=== PATIENT | female | born 1955 | race Caucasian/White ===

== ENCOUNTER 2016-09-20 20:05 | Inpatient (IN) | payer OTHER ==
[2016-09-20] MEDS ORDERED: Ondansetron INJ* 2 MG/ML VIAL IV ONE (20:25)
[2016-09-20] MEDS ORDERED: NS 0.9% 1000 ML* 1,000 ML IV ONE (20:25)
[2016-09-20] MEDS ORDERED: Morphine INJ* 4 MG/ML 1 ML CARPUJECT IV ONE (20:25)
[2016-09-20] MEDS ORDERED: Ondansetron INJ* 2 MG/ML VIAL ONE (20:27)
[2016-09-20] MEDS ORDERED: Morphine INJ* 4 MG/ML 1 ML CARPUJECT ONE (20:27)
[2016-09-20 20:35] LABS: Hematocrit 40 % (35-47); Hemoglobin 12.8 g/dl (12.0-16.0); Mean Corpuscular HGB Conc 32 g/dl (31-36); Mean Corpuscular Hemoglobin 27 pg (27-31); Mean Corpuscular Volume 84 fL (80-97); Mean Platelet Volume 8 um3 (7.4-10.4); Red Blood Count 4.75 10^6/ul (4.0-5.4); Red Cell Distribution Width 16 % (10.5-15); White Blood Count 13.7 10^3/ul (3.5-10.8)
[2016-09-20] MEDS ORDERED: Metoclopramide IV* 5 MG/ML 2 ML VIAL IV ONE (20:43)
[2016-09-20] MEDS ORDERED: Metoclopramide IV* 5 MG/ML 2 ML VIAL ONE (20:43)
[2016-09-20 20:46] LABS: ALT 12 U/L (7-52); AST 13 U/L (13-39); Albumin 3.9 g/dL (3.2-5.2); Alkaline Phosphatase 59 U/L (34-104); Anion Gap 9 mmol/L (2-11); BUN/Creatinine Ratio 16.8 (8-20); Blood Urea Nitrogen 17 mg/dL (6-24); C Reactive Protein 219.85 mg/L (< 5.00); CO2 Carbon Dioxide 26 mmol/L (22-32); Calcium 9.4 mg/dL (8.6-10.3); Chloride 97 mmol/L (101-111); EGFR African American 71.7 (>60); EGFR Non-African American 55.7 (>60); Globulin 3.5 g/dL (2-4); Glucose 150 mg/dL (70-100); Lipase < 10 U/L (11.0-82.0); Magnesium 1.9 mg/dL (1.9-2.7); Potassium 3.8 mmol/L (3.5-5.0); Sodium 132 mmol/L (133-145); Total Protein 7.4 g/dL (6.4-8.9)
[2016-09-20] MEDS ORDERED: Iodixanol* (CONTRAST) 320 MG/ML 100 ML SDV IV ONE (21:01)
--- NOTE | 2016-09-20 22:09 | ED ---
Jorge Selby Erika, scribed for Wolf Jeffries MD on 09/20/16 at 2013 . Abdominal Pain/Female - HPI Summary HPI Summary: Patient is a 60-year-old female presenting to the ED with a CC of upper abdominal pain. Patient reports that pain initially was mild on 09/18/2016, improved yesterday, and then significantly worsened today. Pain is described as a tightness, and is aggravated by palpation. Pt cannot find a comfortable position. She denies similar pain in the past. Associated symptoms include nausea, but patient denies fever and vomiting. Patient has a Hx kidney cancer metastasized to the lungs, which she is currently being treated for with chemotherapy. Pt states she has not changed her regimen in 2 years. Pt states she has not been hospitalized for 2 years. Patient is followed by Dr. Ingram ( oncology) at [facility], who advised her to come to the ED today. Pt used to experience gas pains from the chemotherapy, which have been controlled with omeprazole. - History of Current Complaint Chief Complaint: EDAbdPain Stated Complaint: ABD PAIN/CANCER PT Time Seen by Provider: 09/20/16 20:12 Hx Obtained From: Patient Onset/Duration: Gradual Onset, Lasting Days, Worse Since - Today Timing: Hours Severity Initially: Mild Severity Currently: Moderate Pain Intensity: 9 Pain Scale Used: 0-10 Numeric Location: Discrete At: RUQ, Discrete At: LUQ, Epigastric Character: Other: - Tightness Aggravating Factor(s): Movement, Other: - Palpation Alleviating Factor(s): Nothing Associated Signs and Symptoms: Positive: Nausea. Negative: Fever, Vomiting Allergies/Adverse Reactions: Allergies Allergy/AdvReac Type Severity Reaction Status Date / Time Sunitinib [From Sutent] Allergy Nausea Verified 09/20/16 20:11 Home Medications: Home Medications Inlyta 09/20/16 [History] Levothyroxine TAB* [Synthroid TAB*] 50 mcg PO DAILY 09/20/16 [History Confirmed 09/20/16] Omeprazole CAP* [Prilosec CAP* 20 MG] 20 mg PO DAILY 09/20/16 [History Confirmed 09/20/16] PMH/Surg Hx/FS Hx/Imm Hx Respiratory History: Reports: Other Respiratory Problems/Disorders - KIDNEY CA, METASTASIZED TO LUNGS. History: Reports: Other Problems/Disorders - Kidney cancer Infectious Disease History: No Infectious Disease History: Denies: Traveled Outside the [place] in Last 30 Days - Family History Known Family History: Positive: Cardiac Disease, Other - Pancreatic CA - Social History Occupation: Employed Full-time Lives: With Family Alcohol Use: Occasionally Hx Substance Use: No Substance Use Type: Reports: None Hx Tobacco Use: No Smoking Status (MU): Never Smoked Tobacco Review of Systems Negative: Fever Positive: Abdominal Pain, Nausea. Negative: Vomiting All Other Systems Reviewed And Are Negative: Yes Physical Exam Triage Information Reviewed: Yes Vital Signs On Initial Exam: Initial Vitals Temp Pulse Resp BP Pulse Ox 99.1 F 81 18 114/57 100 09/20/16 20:07 09/20/16 20:07 09/20/16 20:07 09/20/16 20:07 09/20/16 20:07 Vital Signs Reviewed: Yes Appearance: Positive: Pain Distress - moderate, Thin Skin: Positive: Warm Head/Face: Positive: Normal Head/Face Inspection Eyes: Positive: WINNIE ENT: Positive: Hearing grossly normal Neck: Positive: Supple Respiratory/Lung Sounds: Positive: Clear to Auscultation, Breath Sounds Present Cardiovascular: Positive: Normal Abdomen Description: Positive: Other: - mild/mod upper abd tenderness Bowel Sounds: Positive: Present Musculoskeletal: Positive: Strength/ROM Intact Neurological: Positive: Alert, Oriented to Person Place, Time Psychiatric: Positive: Affect/Mood Appropriate Diagnostics - Vital Signs Vital Signs Temp Pulse Resp BP Pulse Ox 09/20/16 20:07 99.1 F 81 18 114/57 100 - Laboratory Lab Results: Lab Results 09/20/16 09/20/16 09/20/16 Range/Units 20:24 20:24 20:24 WBC 13.7 H (3.5-10.8) 10^3/ul RBC 4.75 (4.0-5.4) 10^6/ul Hgb 12.8 (12.0-16.0) g/dl Hct 40 (35-47) % MCV 84 (80-97) fL MCH 27 (27-31) pg MCHC 32 (31-36) g/dl RDW 16 H (10.5-15) % Plt Count 192 (150-450) 10^3/ul MPV 8 (7.4-10.4) um3 Neut % (Auto) 87.2 H (38-83) % Lymph % (Auto) 6.6 L (25-47) % [place] % (Auto) 5.7 (1-9) % Eos % (Auto) 0.2 (0-6) % Baso % (Auto) 0.3 (0-2) % Absolute Neuts (auto) 11.9 H (1.5-7.7) 10^3/ul Absolute Lymphs (auto) 0.9 L (1.0-4.8) 10^3/ul Absolute Monos (auto) 0.8 (0-0.8) 10^3/ul Absolute Eos (auto) 0 (0-0.6) 10^3/ul Absolute Basos (auto) 0 (0-0.2) 10^3/ul Absolute Nucleated RBC 0 10^3/ul Nucleated RBC % 0 Sodium 132 L (133-145) mmol/L Potassium 3.8 (3.5-5.0) mmol/L Chloride 97 L (101-111) mmol/L Carbon Dioxide 26 (22-32) mmol/L Anion Gap 9 (2-11) mmol/L BUN 17 (6-24) mg/dL Creatinine 1.01 H (0.51-0.95) mg/dL Est GFR ( Amer) 71.7 (>60) Est GFR (Non-Af Amer) 55.7 (>60) BUN/Creatinine Ratio 16.8 (8-20) Glucose 150 H (70-100) mg/dL Lactic Acid 1.3 (0.5-2.0) mmol/L Calcium 9.4 (8.6-10.3) mg/dL Magnesium 1.9 (1.9-2.7) mg/dL Total Bilirubin 1.10 H (0.2-1.0) mg/dL AST 13 (13-39) U/L ALT 12 (7-52) U/L Alkaline Phosphatase 59 (34-104) U/L C-Reactive Protein 219.85 H (< 5.00) mg/L Total Protein 7.4 (6.4-8.9) g/dL Albumin 3.9 (3.2-5.2) g/dL Globulin 3.5 (2-4) g/dL Albumin/Globulin Ratio 1.1 (1-3) Lipase < 10 L (11.0-82.0) U/L Result Diagrams: 09/20/16 20:24 09/20/16 20:24 Lab Statement: Any lab studies that have been ordered have been reviewed, and results considered in the medical decision making process. - CT CT A/P W/ CT Interpretation Completed By: Radiologist - IMPRESSION: 1. CT findings are most compatible with cholecystitis and gallbladder wall thickening. Further characterization can be made with ultrasound of the right upper quadrant. 2. There are 2 subcentimeter hypodensities in the right lobe of the liver that are too small to characterize further on this CT examination. Further imaging can be acquired during a right upper quadrant ultrasound. 3. Pulmonary nodule in the right lower lobe could represent renal cell carcinoma metastatic foci according to the patient's oncologic history. 4. Additional chronic, degenerative and iatrogenic findings described in body the report. - Ultrasound No standard instances Ultrasound Interpretation Completed By: Radiologist - IMAGING PROPERTY SUPERVISOR - Ultrasound Abd, RUQ - High suspicion for cholecystitis with minimal intrahepatic biliary duct dilation Re-Evaluation - Re-Evaluation First Eval Re-Evaluation Time: 22:31 Change: Improved Comment: Updated with CT results and need for an ultrasound. Pt is feeling somewhat improved Second Eval Re-Evaluation Time: 23:47 Comment: Discussed US results and need for admission and surgical consult Abdominal Pain Fem Course/Dx - Course Course Of Treatment: A 60 y/o F presents to the ED with a CC of upper abdominal pain for the past 2 days, worse today. Pt is currently on chemotherapy for kidney cancer. CT A/P W/ shows "1. CT findings are most compatible with cholecystitis and gallbladder wall thickening. Further characterization can be made with ultrasound of the right upper quadrant. 2. There are 2 subcentimeter hypodensities in the right lobe of the liver that are too small to characterize further on this CT examination. Further imaging can be acquired during a right upper quadrant ultrasound. 3. Pulmonary nodule in the right lower lobe could represent renal cell carcinoma metastatic foci according to the patient's oncologic history. 4. Additional chronic, degenerative and iatrogenic findings described in body the report." US RUQ shows high suspicion for cholecystitis with minimal intrahepatic biliary duct dilation. Case was discussed with Dr. Cruz, who recommends a medical admission and will consult in the morning. Dr. Carrington accepts the patient for admission. - Diagnoses Provider Diagnoses: ACUTE CHOLECYSTITIS - Provider Notifications Discussed Care Of Patient With: Dr. Crzu (general surgery) at 23:43 - notified of US results. Will see patient in the morning. Recommends medical admission. Dr. Carrington (hospitalist) at 23:46 - agrees to admit Instructed by Provider To: Admit As Inpatient - Critical Care Time Critical Care Time: 30-74 min Discharge - Discharge Plan Condition: Fair Disposition: ADMITTED TO [facility] The documentation as recorded by the Jorge wen Erika accurately reflects the service I personally performed and the decisions made by me, Wolf Jeffries MD.
--- NOTE | 2016-09-20 22:25 | RAD ---
CLINICAL HISTORY: Abdominal pain in a patient with left renal cancer. COMPARISON: None TECHNIQUE: Contrast enhanced CT examination of the abdomen and pelvis from the lung bases through the initial tuberosities. The patient received 79 mL Visipaque 320 intravenously prior to imaging.The patient received oral contrast as well prior to imaging. FINDINGS: VISUALIZED LUNG BASES: At the right lower lobe there is a 1.2 cm pulmonary nodule better depicted in the sagittal plane (image 51). There is no pleural effusion. ABDOMEN AND PELVIS: In the right lobe of the liver there is a 7 mm hypodensity (image 15 of 96). There is a 2 mm low-density lesion in the right lobe of the liver (image 11). Liver is otherwise homogenous in attenuation and the surface is smooth. The spleen, pancreas and adrenal glands are grossly normal in appearance. There is gallbladder wall thickening measuring up to 8 mm in thickness with mild pericholecystic fluid. The right kidney is normal in appearance without focal mass, calcification or signs of hydronephrosis. The left kidney is surgically absent. Evaluation of the gastrointestinal tract is limited as the oral contrast has only progressed as far as the proximal small bowel. The small and large bowel are not distended. Fluid seen surrounding the gallbladder is tracking down the right paracolic gutter coalescing and trace ascites. There is no gross retroperitoneal or mesenteric lymphadenopathy. Surgical clips are seen along the left of midline retroperitoneum. The abdominal aorta and iliac arteries are normal in course and diameter. There are no sinister bone lesions. Degenerative changes include multilevel loss of intervertebral disc height involving the lower thoracic and lumbar spine. Most severe degenerative changes are at L5/S1 where there is sclerotic change at the articulating endplates, marginal osteophyte formation and vacuum disc phenomenon. IMPRESSION: 1. CT findings are most compatible with cholecystitis and gallbladder wall thickening. Further characterization can be made with ultrasound of the right upper quadrant. 2. There are 2 subcentimeter hypodensities in the right lobe of the liver that are too small to characterize further on this CT examination. Further imaging can be acquired during a right upper quadrant ultrasound. 3. Pulmonary nodule in the right lower lobe could represent renal cell carcinoma metastatic foci according to the patient's oncologic history. 4. Additional chronic, degenerative and iatrogenic findings described in body the report.
[2016-09-21] MEDS ORDERED: Piperac/Tazob 3.375 gm in NS* 3.375 GM/100 ML BAG IVPB ONE (00:44)
--- NOTE | 2016-09-21 01:04 | HP ---
H&P (Free Text) History and Physical: PCP: Meghan Stanford MD Date/Time of Evaluation: 09/21/2016 0105 CC: abdominal pain HPI: Mrs Edgar is a 60YO female HX renal cell CA metastatic to lungs dx'd 2013 s/p L nephrectomy on PO Inlyta presents at the recommendation of oncology for report of upper abdominal pain onset Monday gradually progressing to severe. She has chronic diarrhea, but denies N/V, F/C, sweats, chest pain, SOB, or other issues. CT abd/pel reveals a massively distended, inflamed gall bladder. Melissa Jeffries MD ED consulted Mandy Cruz MD surgery who requested Hospitalist Service admission and he will evaluate in AM. PMedHx renal cell CA on treatment hypothyroidism 2nd cancer [place] Allergies Sunitinib [From Sutent] Allergy (Verified 09/20/16 20:11) Nausea Ambulatory Orders Ascorbic Acid [Vitamin C Cr] 500 mg PO DAILY 04/28/14 Cholecalciferol TAB* [Vitamin D TAB*] 1,000 unit PO DAILY 04/28/14 Inlyta 09/20/16 Levothyroxine TAB* [Synthroid TAB*] 50 mcg PO DAILY 09/20/16 Omeprazole CAP* [Prilosec CAP* 20 MG] 20 mg PO DAILY 09/20/16 PSurgHx L nephrectomy SocHx: no tobacco, alcohol, or recreational drugs; , lives alone, 2 adult daughters live in [place]; retired from [employer] where she worded in the [employer]'s office; full code trial of intubation FamHx: Mother passed of pancreatic CA. Father passed of CAD. ROS: as above, otherwise reviewed and all were negative Constitutional: NAD, normally developed, well-nourished white female vitals: Vital Signs Temp 37.3 C 09/20/16 20:07 Pulse 94 09/21/16 00:30 Resp 16 09/20/16 20:34 BP 154/80 09/21/16 00:30 Pulse Ox 96 09/21/16 00:30 Intake & Output 09/20/16 09/20/16 09/21/16 11:59 23:59 11:59 Weight 62.596 kg Other: Date of Last Bowel t Movement Estimated Stool Amount Medium HEENM: atraumatic; sclera/conjunctiva: non-icteric/clear; hearing: clinically intact; oropharynx: clear, mucosa moist Neck: soft tissue: non-tender; thyroid: normal Pulmonary: clear to auscultation bilaterally, good aeration, no accessory muscle use CV: RR/RR, normal S1S2, no carotid bruit, no jugular venous distention, 2+ B DP/ PT, no edema Abdominal: soft, non-distended, non-tender, no rebound/guarding/rigidity, normoactive bowel sounds, no hepatosplenomegaly or masses, no costovertebral angle tenderness Musculoskeletal: general: grossly intact; gait: stable Integumental: normal appearance and texture of exposed skin Psychiatric orientation: AA&O to PPS affect: mild-moderate pain mood: pleasant eye contact: good content: reliable responses: timely insight: good Testing: Lab Results 09/20/16 09/20/16 09/20/16 Range/Units 20:24 20:24 20:24 WBC 13.7 H (3.5-10.8) 10^3/ul RBC 4.75 (4.0-5.4) 10^6/ul Hgb 12.8 (12.0-16.0) g/dl Hct 40 (35-47) % MCV 84 (80-97) fL MCH 27 (27-31) pg MCHC 32 (31-36) g/dl RDW 16 H (10.5-15) % Plt Count 192 (150-450) 10^3/ul MPV 8 (7.4-10.4) um3 Neut % (Auto) 87.2 H (38-83) % Lymph % (Auto) 6.6 L (25-47) % [place] % (Auto) 5.7 (1-9) % Eos % (Auto) 0.2 (0-6) % Baso % (Auto) 0.3 (0-2) % Absolute Neuts (auto) 11.9 H (1.5-7.7) 10^3/ul Absolute Lymphs (auto) 0.9 L (1.0-4.8) 10^3/ul Absolute Monos (auto) 0.8 (0-0.8) 10^3/ul Absolute Eos (auto) 0 (0-0.6) 10^3/ul Absolute Basos (auto) 0 (0-0.2) 10^3/ul Absolute Nucleated RBC 0 10^3/ul Nucleated RBC % 0 Sodium 132 L (133-145) mmol/L Potassium 3.8 (3.5-5.0) mmol/L Chloride 97 L (101-111) mmol/L Carbon Dioxide 26 (22-32) mmol/L Anion Gap 9 (2-11) mmol/L BUN 17 (6-24) mg/dL Creatinine 1.01 H (0.51-0.95) mg/dL Est GFR ( Amer) 71.7 (>60) Est GFR (Non-Af Amer) 55.7 (>60) BUN/Creatinine Ratio 16.8 (8-20) Glucose 150 H (70-100) mg/dL Lactic Acid 1.3 (0.5-2.0) mmol/L Calcium 9.4 (8.6-10.3) mg/dL Magnesium 1.9 (1.9-2.7) mg/dL Total Bilirubin 1.10 H (0.2-1.0) mg/dL AST 13 (13-39) U/L ALT 12 (7-52) U/L Alkaline Phosphatase 59 (34-104) U/L C-Reactive Protein 219.85 H (< 5.00) mg/L Total Protein 7.4 (6.4-8.9) g/dL Albumin 3.9 (3.2-5.2) g/dL Globulin 3.5 (2-4) g/dL Albumin/Globulin Ratio 1.1 (1-3) Lipase < 10 L (11.0-82.0) U/L CT abd/pel W, personally reviewed: IMPRESSION: 1. CT findings are most compatible with cholecystitis and gallbladder wall thickening. Further characterization can be made with ultrasound of the right upper quadrant. 2. There are 2 subcentimeter hypodensities in the right lobe of the liver that are too small to characterize further on this CT examination. Further imaging can be acquired during a right upper quadrant ultrasound. 3. Pulmonary nodule in the right lower lobe could represent renal cell carcinoma metastatic foci according to the patient's oncologic history. 4. Additional chronic, degenerative and iatrogenic findings described in body the report. US abd: report pending Impression: 60F HX renal cell CA on chemo presents with acute cholecystitis DIAGNOSIS & PLAN Primary acute cholecystitis : IV piperacillin/tazobactam : IVFs : blood CX : pain control : Mandy Cruz MD surgery consulted by ED, will evaluate in AM : supportive care Secondary renal cell CA : no acute issue : continue outpatient management via oncology hypothyroidism : levothyroxine 25mcgs IV daily GERD : IV pantoprazole Admission Rational: inpatient for surgical management of acute cholecystitis DVTp: SCDs, heparin post-op when cleared by surgery Code Status: full HCP: daughterTriny Termina
[2016-09-21] MEDS ORDERED: Ondansetron INJ* 2 MG/ML VIAL IV PRN (01:26)
[2016-09-21] MEDS ORDERED: LORazepam INJ* 2 MG/ML 1 ML VIAL IV PRN (01:26)
[2016-09-21] MEDS ORDERED: Acetaminophen TAB* 325 MG PO PRN (01:26)
[2016-09-21] MEDS: HYDROmorphone INJ* 1 MG/ML CARPUJECT SYRINGE IV PRN ×4 (02:22→21:11)
[2016-09-21] MEDS: NS 0.9% 1000 ML* 1,000 ML IV SCH ×3 (02:35→21:11)
[2016-09-21] MEDS: Piperac/Tazob 3.375 gm in NS* 3.375 GM/100 ML BAG IVPB SCH ×3 (04:58→21:11)
[2016-09-21] MEDS ORDERED: Levothyroxine INJ* 100 MCG/5 ML VIAL IV SCH (06:00)
[2016-09-21] MEDS ORDERED: Levothyroxine TAB* 50 MCG TAB PO SCH (06:00)
[2016-09-21 06:53] LABS: Urine Bacteria Absent (Absent); Urine Bilirubin Negative (Negative); Urine Glucose Negative (Negative); Urine Nitrite Negative (Negative)
[2016-09-21 06:58] LABS: Hematocrit 34 % (35-47); Hemoglobin 11.2 g/dl (12.0-16.0); Mean Corpuscular HGB Conc 33 g/dl (31-36); Mean Corpuscular Hemoglobin 28 pg (27-31); Mean Corpuscular Volume 84 fL (80-97); Mean Platelet Volume 9 um3 (7.4-10.4); Red Blood Count 4.04 10^6/ul (4.0-5.4); Red Cell Distribution Width 16 % (10.5-15); White Blood Count 10.6 10^3/ul (3.5-10.8)
[2016-09-21 07:09] LABS: Albumin 3.2 g/dL (3.2-5.2); BUN/Creatinine Ratio 15.4 (8-20); Calcium 8.1 mg/dL (8.6-10.3); EGFR African American 80.8 (>60); EGFR Non-African American 62.8 (>60); Globulin 2.8 g/dL (2-4); Indirect Bilirubin 1.1 mg/dL (0.3-1.0); Potassium 3.9 mmol/L (3.5-5.0); Total Bilirubin 2.1 mg/dL (0.2-1.0)
--- NOTE | 2016-09-21 07:47 | RAD ---
HISTORY: 2 days of right upper quadrant pain COMPARISONS: Same day CT of the abdomen and pelvis TECHNIQUE: Multiple transverse and longitudinal ultrasound images were obtained of the right upper quadrant. FINDINGS: LIVER: In the right lobe of the liver there is a 1 cm hypoechogenic and avascular lesion that corresponds to the low-density focus seen on the same day CT examination and is more consistent with a benign hemangioma than a focus of metastasis. Otherwise the liver is normal in dimensions and echogenicity. Normal hepatic and portal venous blood flow is duplicated with color flow imaging. There is no gross intrahepatic biliary duct dilatation. GALLBLADDER AND EXTRAHEPATIC BILIARY DUCT: In the gallbladder lumen there are echogenic, shadowing foci in the dependent portion most consistent with gallstones. There is a small amount of pericholecystic fluid and the gallbladder wall measures up to 9 mm in thickness. The common bile duct measures a maximum diameter of 5 mm. The cleaner and dyer reports no sonographic Chavis sign. PANCREAS: The portions of the pancreas not obscured by bowel gas are normal in appearance. RIGHT KIDNEY: The right kidney is normal in size, morphology and echogenicity. IMPRESSION: ULTRASOUND FINDINGS ARE CONSISTENT WITH CHOLECYSTITIS IN THE PRESENCE OF GALLSTONES. IF IT WILL INFLUENCE CLINICAL MANAGEMENT FURTHER OBJECTIVE EVIDENCE CAME BE ACQUIRED WITH SCINTIGRAPHIC IMAGING.
[2016-09-21] MEDS ORDERED: Omeprazole CAP* 20 MG PO SCH (09:00)
[2016-09-21] MEDS: Pantoprazole IV* 40 MG IV SCH (09:58)
--- NOTE | 2016-09-21 15:24 | PN ---
Subjective Date of Service: 09/21/16 Interval History: Pt is feeling ok. Her pain is starting to come back. The pain medication has helped. She is tolerating the clear liquid diet. Objective Active Medications: Acetaminophen (Tylenol Tab*) 650 mg PO Q6H PRN PRN Reason: FEVER/PAIN Hydromorphone HCl (Dilaudid Iv*) 1 mg IV Q2H PRN PRN Reason: PAIN Last Admin: 09/21/16 05:03 Dose: 1 mg Sodium Chloride (Ns 0.9% 1000 Ml*) 1,000 mls @ 125 mls/hr IV PER RATE [facility] Last Admin: 09/21/16 12:00 Dose: 125 mls/hr Piperacillin Sod/Tazobactam Sod (Zosyn 3.375 Gm In Ns Premix*) 3.375 gm in 100 mls @ 25 mls/hr IVPB Q8H [facility] Last Admin: 09/21/16 13:20 Dose: 25 mls/hr Levothyroxine Sodium (Synthroid Inj*) 25 mcg IV 0600 [facility] Last Admin: 09/21/16 06:01 Dose: 25 mcg Lorazepam (Ativan Inj*) 0.5 mg IV BEDTIME PRN PRN Reason: SLEEP Non-Formulary Medication (Inlyta) 5 mg PO BID [facility] Ondansetron HCl (Zofran Inj*) 4 mg IV Q6H PRN PRN Reason: NAUSEA Pantoprazole Sodium (Protonix Iv*) 40 mg IV DAILY [facility] Last Admin: 09/21/16 09:58 Dose: 40 mg Vital Signs 09/21/16 09/21/16 09/21/16 02:00 02:22 02:30 Temperature 98.4 F Pulse Rate 104 106 Respiratory 18 17 Rate Blood Pressure 136/76 (mmHg) O2 Sat by Pulse 94 95 Oximetry 09/21/16 09/21/16 09/21/16 02:33 02:38 03:22 Temperature 98.4 F Pulse Rate 106 Respiratory 17 17 16 Rate Blood Pressure 136/76 (mmHg) O2 Sat by Pulse 95 Oximetry 09/21/16 09/21/16 09/21/16 05:03 06:03 07:22 Temperature 97.6 F Pulse Rate 88 Respiratory 16 16 18 Rate Blood Pressure 115/69 (mmHg) O2 Sat by Pulse 92 Oximetry 09/21/16 09/21/16 08:00 12:08 Temperature 98.1 F Pulse Rate 91 Respiratory 17 18 Rate Blood Pressure 135/78 (mmHg) O2 Sat by Pulse 96 Oximetry Oxygen Devices in Use Now: None Appearance: Middle aged female sitting up in bed, NAD Eyes: No Scleral Icterus Ears/Nose/Mouth/Throat: Mucous Membranes Moist Respiratory: Symmetrical Chest Expansion and Respiratory Effort, Clear to Auscultation Cardiovascular: NL Sounds; No Murmurs; No JVD, RRR, No Edema Abdominal: - - BS+ soft, ND, moderately tender to palpation RUQ Extremities: No Clubbing, Cyanosis Skin: No Rash or Ulcers, No Nodules or Sclerosis Neurological: Alert and Oriented x 3 Result Diagrams: 09/21/16 06:22 09/21/16 06:22 Additional Lab and Data: Lab Results 09/20/16 09/20/16 09/20/16 Range/Units 20:24 20:24 20:24 WBC 13.7 H (3.5-10.8) 10^3/ul RBC 4.75 (4.0-5.4) 10^6/ul Hgb 12.8 (12.0-16.0) g/dl Hct 40 (35-47) % MCV 84 (80-97) fL MCH 27 (27-31) pg MCHC 32 (31-36) g/dl RDW 16 H (10.5-15) % Plt Count 192 (150-450) 10^3/ul MPV 8 (7.4-10.4) um3 Neut % (Auto) 87.2 H (38-83) % Lymph % (Auto) 6.6 L (25-47) % [place] % (Auto) 5.7 (1-9) % Eos % (Auto) 0.2 (0-6) % Baso % (Auto) 0.3 (0-2) % Absolute Neuts (auto) 11.9 H (1.5-7.7) 10^3/ul Absolute Lymphs (auto) 0.9 L (1.0-4.8) 10^3/ul Absolute Monos (auto) 0.8 (0-0.8) 10^3/ul Absolute Eos (auto) 0 (0-0.6) 10^3/ul Absolute Basos (auto) 0 (0-0.2) 10^3/ul Absolute Nucleated RBC 0 10^3/ul Nucleated RBC % 0 Sodium 132 L (133-145) mmol/L Potassium 3.8 (3.5-5.0) mmol/L Chloride 97 L (101-111) mmol/L Carbon Dioxide 26 (22-32) mmol/L Anion Gap 9 (2-11) mmol/L BUN 17 (6-24) mg/dL Creatinine 1.01 H (0.51-0.95) mg/dL Est GFR ( Amer) 71.7 (>60) Est GFR (Non-Af Amer) 55.7 (>60) BUN/Creatinine Ratio 16.8 (8-20) Glucose 150 H (70-100) mg/dL Lactic Acid 1.3 (0.5-2.0) mmol/L Calcium 9.4 (8.6-10.3) mg/dL Magnesium 1.9 (1.9-2.7) mg/dL Total Bilirubin 1.10 H (0.2-1.0) mg/dL AST 13 (13-39) U/L ALT 12 (7-52) U/L Alkaline Phosphatase 59 (34-104) U/L C-Reactive Protein 219.85 H (< 5.00) mg/L Total Protein 7.4 (6.4-8.9) g/dL Albumin 3.9 (3.2-5.2) g/dL Globulin 3.5 (2-4) g/dL Albumin/Globulin Ratio 1.1 (1-3) Lipase < 10 L (11.0-82.0) U/L Assess/Plan/Problems-Billing Ms Edgar is a 60 yo F who has a h/o metastatic renal cell carcinoma who presented to the ER with c/o abdominal pain and was found to have evidence of acute cholecytstitis. - Patient Problems (1) Acute cholecystitis Current Visit: Yes Status: Acute Code(s): K81.0 - ACUTE CHOLECYSTITIS SNOMED Code(s): 31891346 Comment: Continue zosyn for now. Plan for surgery tomorrow with Dr. Cruz. Continue pain control and only clear liquid diet for now. (2) Renal cell carcinoma Current Visit: Yes Status: Acute Code(s): C64.9 - MALIGNANT NEOPLASM OF UNSP KIDNEY, EXCEPT RENAL PELVIS SNOMED Code(s): 819029535 Comment: Continue inlyta-will need to monitor for impaired wound healing ( known side effect). (3) Hypothyroidism Current Visit: Yes Status: Acute Code(s): E03.9 - HYPOTHYROIDISM, UNSPECIFIED SNOMED Code(s): 48375657 Comment: Change to oral synthroid. (4) DVT prophylaxis Current Visit: Yes Status: Acute Code(s): ZCY1207 - SNOMED Code(s): 464539298 Comment: SCDs (5) Full code status Current Visit: Yes Status: Acute Code(s): Z78.9 - OTHER SPECIFIED HEALTH STATUS SNOMED Code(s): 950784454
--- NOTE | 2016-09-21 21:00 | CONS ---
CONSULTATION REPORT: DATE OF CONSULT: 09/21/16 ATTENDING PHYSICIAN: Dr. Romeo Cruz. REASON FOR CONSULTATION: Right upper quadrant abdominal pain and suspicion for acute cholecystitis. HISTORY OF PRESENT ILLNESS: Ms. Edgar is a pleasant 60-year-old female who presented to the emergency room yesterday evening with complaints of worsening epigastric and upper abdominal pain since Monday. The patient notes that her pain started dull and band like in her epigastrium since Monday evening, but was tolerable for which she went to bed and got up next morning. She notes that she did not eat anything different on Monday night. She only had some cheese and crackers, and a little bit of fluid that night, but denies any increased fatty intake. She notes that her pain has gotten progressively worse over the past 2 days, for which, she went to emergency room last night for further evaluation. She described it as a dull pain in the beginning with sharp episodes localized to the epigastric and right quadrant area with some radiation to the back. She denies any associated nausea, vomiting, fever, or chills, but notes chronic diarrhea given her history of renal cell carcinoma, for which she has been on chemotherapy for the past 2 years. During her emergency room visit, she had a CT scan of the abdomen and pelvis that revealed a distended, thick-walled gallbladder, for which she had a followup right upper quadrant ultrasound confirming findings consistent was acute cholecystitis and cholelithiasis. Given her ongoing symptoms and the finding of the diagnostic studies, we were asked to see the patient for further evaluation and to discuss possible gallbladder surgery. I saw the patient this morning in consultation and she appears to be comfortable after she spent the night in the hospital under pain medication and hydration. She denies any nausea or vomiting this morning. She denies any recent changes in the bowel habits except for her chronic diarrhea or changes in the color of urine or stools. PAST MEDICAL HISTORY: As mentioned above, significant for renal cell carcinoma , for which, she underwent a left nephrectomy back in April 2014. She also has history of hypothyroidism secondary to cancer treatment. PAST SURGICAL HISTORY: Significant for left nephrectomy in 2013 as well as tubal ligation. CURRENT MEDICATIONS: Her home medications include: 1. Ascorbic acid 500 mg p.o. q. daily. 2. Cholecalciferol 1000 unit tablets once daily. 3. Levothyroxine 50 mcg p.o. q. daily. 4. Prilosec 20 mg p.o. q. daily. 5. She also take an oral chemotherapy agent called Inlyta, but the dose is unknown at this time. ALLERGY: She is allergic to SUNITINIB that cause nausea. FAMILY HISTORY: She denies any family history of colorectal malignancies. SOCIAL HISTORY: The patient is a nonsmoker who drinks alcohol rarely and caffeine intake is moderate. REVIEW OF SYSTEMS: See HPI, otherwise negative. She denies any headache, dizziness, trouble swallowing, fever, chills, or recent weight changes. No chest pain, palpitation, syncope, or night sweats. No cough, shortness of breath. She admits to chronic diarrhea, but denies any nausea, vomiting, changes in the colors of stools. She denies any dysuria, hematuria, or urinary frequency. PHYSICAL EXAMINATION: General: She is a pleasant healthy-appearing, upper middle- age female, appears comfortable and in no acute distress or discomfort at the time of consultation. Vitals: Reveal temperature of 97.6 orally, pulse of 88, respiration of 18, O2 sats of 92%, and blood pressure of 115/69. HEENT: Sclerae anicteric. PEERLA. EOMs intact. Oropharynx is pink, moist with no exudate. Neck: Supple. Trachea midline. No cervical adenopathy, thyromegaly, or JVD. Lungs: Clear to auscultation bilaterally. Heart: Regular rate and rhythm. Normal S1 and S2 without rubs, murmurs, or gallops. Abdomen: Soft and nondistended. [id number] epigastric and right upper quadrant tenderness noted on palpation. There is no hernias, masses, or hepatosplenomegaly. No guarding or rebound tenderness. Chavis sign was positive. Breast Exam: Deferred at this time. Back: With normal curvature. No CVA tenderness. Extremities: Without cyanosis, clubbing, or edema. Neurologic: Grossly intact. Rectal Exam: Deferred at this time. LABORATORY WORKUP: Her most recent CBC performed this morning revealed a white count of 10,600, which is down from her value of last night of 13,700, hemoglobin this morning is 11.2, hematocrit 34, and platelets of 142. Her chemistry revealed a sodium of 134, potassium 3.9, chloride 102, CO2 of 26, BUN 6, creatinine 14, and glucose of 127. Her LFTs showed increased total bilirubin of 2.1 this morning up from 1.1 last night. Her alkaline phosphatase is higher, today's value of 117 versus 59 last night. The remainder of her amylase and lipase were normal. ACCESSORY DIAGNOSTIC DATA: As mentioned above, the patient had a CT scan of the abdomen and pelvis last night revealing findings consistent with cholecystitis with gallbladder thickening. The patient had a right upper quadrant ultrasound to follow that revealed findings consistent with cholecystitis as well as cholelithiasis. ASSESSMENT: A 60-year-old female with signs and symptoms as well as diagnostic findings consistent was acute cholecystitis and cholelithiasis. PLAN: I went on and discussed with the patient proceeding with a laparoscopic cholecystectomy given her ongoing pain and the findings of acute cholecystitis with cholelithiasis on her CT scan as well as ultrasound. The patient appeared to be comfortable at this point, for which, we will obtain medical clearance probably discuss her case with her oncologist, who is Dr. Ingram at [facility] for further recommendation. Again, she appears to be clinically stable and her pain is under control at this time. We will proceed to give her clear liquid diet today; however, we will keep her n.p.o. past midnight in anticipation for a laparoscopic cholecystectomy tomorrow in the afternoon. The rationale, indications, risks, and benefits of laparoscopic cholecystectomy were discussed with her today. Risks include, but not limited to infection, bleeding, or injury to adjacent structures. She seems to understand and agreed to proceed with her care plan. We will maintain her on IV antibiotics at this point with IV hydration, clear liquid diet, and analgesia and we will proceed with laparoscopic cholecystectomy tomorrow as planned. ALFA ANDRE [id number]/[facility] #: [id number] MAYRA
[2016-09-21] MEDS: AXITINIB 5 MG PO SCH (21:10)
[2016-09-22] MEDS ORDERED: Piperac/Tazob 3.375 gm in NS* 3.375 GM/100 ML BAG IVPB SCH (00:01)
[2016-09-22] MEDS: HYDROmorphone INJ* 1 MG/ML CARPUJECT SYRINGE IV PRN ×8 (04:19→18:13)
[2016-09-22] MEDS: Piperac/Tazob 3.375 gm in NS* 3.375 GM/100 ML BAG IVPB SCH ×3 (05:13→20:44)
[2016-09-22] MEDS: Levothyroxine TAB* 50 MCG TAB PO SCH (05:13)
[2016-09-22] MEDS: NS 0.9% 1000 ML* 1,000 ML IV SCH (06:12)
[2016-09-22] MEDS: AXITINIB 5 MG PO SCH ×2 (09:59→20:56)
[2016-09-22] MEDS: Pantoprazole IV* 40 MG IV SCH (10:01)
--- NOTE | 2016-09-22 10:42 | SURGPN ---
Subjective - Introduction -: Admitted on: 09/20/2016 Patient's surgical date: 09/22/2016 Procedure completed: scheduled for a laparoscopic cholecystectomy at 1430 today - Medications -: Active Medications Generic Name Dose Route Start Last Admin Trade Name Freq PRN Reason Stop Dose Admin Acetaminophen 650 mg 09/21/16 01:26 Tylenol Tab* PO Q6H PRN FEVER/PAIN Hydromorphone HCl 1 mg 09/21/16 01:26 09/22/16 04:19 Dilaudid Iv* IV 1 mg Q2H PRN Administration PAIN Piperacillin Sod/Tazobactam Sod 3.375 gm in 100 mls @ 25 mls/hr 09/21/16 05: 00 09/22/16 05:13 Zosyn 3.375 Gm In Ns Premix* IVPB 25 mls/hr Q8H KATHERIN Administration Sodium Chloride 1,000 mls @ 100 mls/hr 09/21/16 15:27 09/22/16 06:12 Ns 0.9% 1000 Ml* IV 100 mls/hr PER RATE KATHERIN Administration Levothyroxine Sodium 50 mcg 09/22/16 06:00 09/22/16 05:13 Synthroid Tab* PO 50 mcg DAILY@0600 KATHERIN Administration Lorazepam 0.5 mg 09/21/16 01:26 Ativan Inj* IV BEDTIME PRN SLEEP Pt Own Nf Med* 5 mg 09/21/16 21:00 09/22/16 09:59 Inlyta 5 Mg PO 5 mg BID KATHERIN Administration Ondansetron HCl 4 mg 09/21/16 01:26 Zofran Inj* IV Q6H PRN NAUSEA Pantoprazole Sodium 40 mg 09/21/16 09:00 09/22/16 10:01 Protonix Iv* IV 40 mg DAILY KATHERIN Administration - Comments Comments: Reports no changes last night. Her pain is under control, denies any N/V, fever or chills. Objective - Objective -: Awake and alert, sitting on bed, appears comfortable and in NAD. - Intake and Output -: Intake & Output 09/20/16 09/21/16 09/22/16 09/23/16 06:59 06:59 06:59 06:59 Intake Total 0 4835 Output Total 700 Balance 0 4135 Weight 145 lb 6.4 oz 150 lb Intake: IV Fluids 3333 NS (0.9%) 3173 zosyn 160 IVPB 152 NS (0.9%) 152 Oral 0 1350 Output: Urine 700 Surgical Physical Exam - Comments -: Vitals reviewed, afebrile. Abdomen: Soft, non-distended, mild RUQ tenderness on deep palpation Assessment and Plan - Assessment -: A 60 y/o female with acute cholecystitis, scheduled for a laparoscopic cholecystectomy this afternoon. - Plan Additional Comments: As discussed with patient, will proceed with laparoscopic cholecystectomy as planned. Rational, risks and benefits were discussed with her today. She understands and wishes to proceed as outlined.
[2016-09-22] MEDS ORDERED: Buffered Lidocaine 1% SYR 3ML* 3 ML/SYR SYRINGE INTRADERM ONE (13:20)
[2016-09-22] MEDS ORDERED: Dexamethasone IV* 4 MG/ML 1 ML (4 MG) IV SLOW PU ONE (13:20)
[2016-09-22] MEDS ORDERED: Atracurium* 10 MG/ML 10 ML VIAL ONE (13:58)
[2016-09-22] MEDS ORDERED: fentaNYL* 50 MCG/ML 5 ML VIAL (250 MCG VIAL) ONE (13:58)
[2016-09-22] MEDS ORDERED: Midazolam* 1 MG/ML 5 ML VIAL (5 MG) ONE (13:58)
[2016-09-22] MEDS ORDERED: Lidocaine 2% PF * 5 ML VIAL ONE (13:58)
[2016-09-22] MEDS ORDERED: Propofol* 10 MG/ML 20 ML BTL IV PUSH ONE (13:58)
[2016-09-22] MEDS ORDERED: Ondansetron INJ* 2 MG/ML VIAL ONE (13:58)
[2016-09-22] MEDS ORDERED: Bupivacaine 0.25% EPI 200,000* 30 ML SDV ONE (14:24)
[2016-09-22] MEDS ORDERED: oxyCODONE/Acetamin 5/325 MG* TAB PO PRN (14:29)
[2016-09-22] MEDS ORDERED: Ondansetron INJ* 2 MG/ML VIAL IV PRN ×2 (14:29→15:55)
[2016-09-22] MEDS ORDERED: DiMENhydriNATE IV* 50 MG/ML VIAL IV PUSH PRN (14:29)
[2016-09-22] MEDS ORDERED: Scopolamine 1.5 mg* PATCH TRANSDERM PRN (14:29)
[2016-09-22] MEDS ORDERED: Phenylephrine IV* 40 MCG/ML 10 ML SYRINGE ONE (14:58)
[2016-09-22] MEDS ORDERED: fentaNYL* 50 MCG/ML 2 ML VIAL (100 MCG VIAL) ONE ×2 (15:02→15:53)
[2016-09-22] MEDS ORDERED: Metoprolol Tartrate IV* 1 MG/ML 5 ML VIAL ONE (15:07)
[2016-09-22] MEDS: fentaNYL* 50 MCG/ML 2 ML VIAL (100 MCG VIAL) IV PRN ×2 (15:55→16:07)
[2016-09-22] MEDS ORDERED: Dexamethasone IV* 4 MG/ML 1 ML (4 MG) ONE (16:01)
[2016-09-22] MEDS ORDERED: HYDROmorphone INJ* 1 MG/ML CARPUJECT SYRINGE ONE (16:05)
--- NOTE | 2016-09-22 18:16 | PN ---
Subjective Date of Service: 09/22/16 Interval History: Pt is feeling ok. She has some tenderness in the RUQ. SHe is trying to eat some clears. Objective Active Medications: Acetaminophen (Tylenol Tab*) 650 mg PO Q6H PRN PRN Reason: FEVER/PAIN Heparin Sodium (Porcine) (Heparin Vial(*)) 5,000 units SUBCUT Q8HR [facility] Hydromorphone HCl (Dilaudid Iv*) 1 mg IV Q2H PRN PRN Reason: PAIN Last Admin: 09/22/16 12:28 Dose: 1 mg Piperacillin Sod/Tazobactam Sod (Zosyn 3.375 Gm In Ns Premix*) 3.375 gm in 100 mls @ 25 mls/hr IVPB Q8H [facility] Last Admin: 09/22/16 14:09 Dose: 25 mls/hr Lactated Ringer's (Lactated Ringers 1000 Ml Bag*) 1,000 mls @ 125 mls/hr IV .per rate [facility] Last Admin: 09/22/16 17:14 Dose: 125 mls/hr Levothyroxine Sodium (Synthroid Tab*) 50 mcg PO DAILY@0600 [facility] Last Admin: 09/22/16 05:13 Dose: 50 mcg Lorazepam (Ativan Inj*) 0.5 mg IV BEDTIME PRN PRN Reason: SLEEP Pt Own Nf Med* (Inlyta 5 Mg) 5 mg PO BID [facility] Last Admin: 09/22/16 09:59 Dose: 5 mg Ondansetron HCl (Zofran Inj*) 4 mg IV Q4H PRN PRN Reason: NAUSEA/VOMITING Pantoprazole Sodium (Protonix Iv*) 40 mg IV DAILY [facility] Last Admin: 09/22/16 10:01 Dose: 40 mg Pharmacy Profile Note (Scopolomine Patch Remove*) 1 note PATCH OFF Q72H ONE Stop: 09/25/16 14:31 Vital Signs 09/21/16 09/21/16 09/21/16 20:00 20:06 21:11 Temperature 99.2 F Pulse Rate 105 Respiratory 16 16 18 Rate Blood Pressure 124/69 (mmHg) O2 Sat by Pulse 98 Oximetry 09/21/16 09/21/16 09/22/16 22:11 23:31 04:10 Temperature 100.1 F 98.9 F Pulse Rate 93 94 Respiratory 16 16 16 Rate Blood Pressure 110/62 126/74 (mmHg) O2 Sat by Pulse 95 93 Oximetry 09/22/16 09/22/16 09/22/16 04:19 05:19 07:23 Temperature 98.0 F Pulse Rate 86 Respiratory 16 18 16 Rate Blood Pressure 121/74 (mmHg) O2 Sat by Pulse 96 Oximetry 09/22/16 09/22/16 09/22/16 08:00 11:56 12:28 Temperature 98.0 F Pulse Rate 80 Respiratory 18 16 18 Rate Blood Pressure 131/82 (mmHg) O2 Sat by Pulse 96 Oximetry 09/22/16 09/22/16 09/22/16 15:52 15:55 16:00 Temperature 98.8 F Pulse Rate 96 95 89 Respiratory 24 24 22 Rate Blood Pressure 134/81 134/72 125/90 (mmHg) O2 Sat by Pulse 98 98 98 Oximetry 09/22/16 09/22/16 09/22/16 16:06 16:07 16:15 Temperature Pulse Rate 86 Respiratory 18 18 18 Rate Blood Pressure 133/80 (mmHg) O2 Sat by Pulse 98 Oximetry 09/22/16 09/22/16 09/22/16 16:17 16:24 16:30 Temperature Pulse Rate 82 Respiratory 18 18 16 Rate Blood Pressure 125/73 (mmHg) O2 Sat by Pulse 97 Oximetry 09/22/16 09/22/16 09/22/16 16:41 16:45 16:55 Temperature 98.4 F Pulse Rate 87 Respiratory 16 18 16 Rate Blood Pressure 141/90 (mmHg) O2 Sat by Pulse 98 Oximetry 09/22/16 09/22/16 09/22/16 17:06 17:07 17:20 Temperature 97.6 F Pulse Rate 79 Respiratory 18 18 18 Rate Blood Pressure 133/81 (mmHg) O2 Sat by Pulse 95 Oximetry Oxygen Devices in Use Now: None Appearance: Middle aged female sitting up in bed, NAD Eyes: No Scleral Icterus Ears/Nose/Mouth/Throat: Mucous Membranes Moist Respiratory: Symmetrical Chest Expansion and Respiratory Effort, Clear to Auscultation - with fine bibasilar crackles Cardiovascular: NL Sounds; No Murmurs; No JVD, RRR, No Edema Abdominal: - - BS+ hypoactive Extremities: No Clubbing, Cyanosis Skin: No Rash or Ulcers, No Nodules or Sclerosis Neurological: Alert and Oriented x 3 Result Diagrams: 09/21/16 06:22 09/21/16 06:22 Additional Lab and Data: Lab Results 09/20/16 09/20/16 09/20/16 Range/Units 20:24 20:24 20:24 WBC 13.7 H (3.5-10.8) 10^3/ul RBC 4.75 (4.0-5.4) 10^6/ul Hgb 12.8 (12.0-16.0) g/dl Hct 40 (35-47) % MCV 84 (80-97) fL MCH 27 (27-31) pg MCHC 32 (31-36) g/dl RDW 16 H (10.5-15) % Plt Count 192 (150-450) 10^3/ul MPV 8 (7.4-10.4) um3 Neut % (Auto) 87.2 H (38-83) % Lymph % (Auto) 6.6 L (25-47) % [place] % (Auto) 5.7 (1-9) % Eos % (Auto) 0.2 (0-6) % Baso % (Auto) 0.3 (0-2) % Absolute Neuts (auto) 11.9 H (1.5-7.7) 10^3/ul Absolute Lymphs (auto) 0.9 L (1.0-4.8) 10^3/ul Absolute Monos (auto) 0.8 (0-0.8) 10^3/ul Absolute Eos (auto) 0 (0-0.6) 10^3/ul Absolute Basos (auto) 0 (0-0.2) 10^3/ul Absolute Nucleated RBC 0 10^3/ul Nucleated RBC % 0 Sodium 132 L (133-145) mmol/L Potassium 3.8 (3.5-5.0) mmol/L Chloride 97 L (101-111) mmol/L Carbon Dioxide 26 (22-32) mmol/L Anion Gap 9 (2-11) mmol/L BUN 17 (6-24) mg/dL Creatinine 1.01 H (0.51-0.95) mg/dL Est GFR ( Amer) 71.7 (>60) Est GFR (Non-Af Amer) 55.7 (>60) BUN/Creatinine Ratio 16.8 (8-20) Glucose 150 H (70-100) mg/dL Lactic Acid 1.3 (0.5-2.0) mmol/L Calcium 9.4 (8.6-10.3) mg/dL Magnesium 1.9 (1.9-2.7) mg/dL Total Bilirubin 1.10 H (0.2-1.0) mg/dL AST 13 (13-39) U/L ALT 12 (7-52) U/L Alkaline Phosphatase 59 (34-104) U/L C-Reactive Protein 219.85 H (< 5.00) mg/L Total Protein 7.4 (6.4-8.9) g/dL Albumin 3.9 (3.2-5.2) g/dL Globulin 3.5 (2-4) g/dL Albumin/Globulin Ratio 1.1 (1-3) Lipase < 10 L (11.0-82.0) U/L Microbiology and Other Data: Microbiology 09/21/16 02:14 Aerobic Blood Culture - Preliminary Blood Venous No Growth Day 1 Anaerobic Blood Culture - Preliminary No Growth Day 1 09/21/16 02:14 Aerobic Blood Culture - Preliminary Blood Venous No Growth Day 1 Anaerobic Blood Culture - Preliminary No Growth Day 1 Assess/Plan/Problems-Billing Ms Edgar is a 60 yo F who has a h/o metastatic renal cell carcinoma who presented to the ER with c/o abdominal pain and was found to have evidence of acute cholecytstitis. - Patient Problems (1) Acute cholecystitis Current Visit: Yes Status: Acute Code(s): K81.0 - ACUTE CHOLECYSTITIS SNOMED Code(s): 55827058 Comment: Continue zosyn for now. She is s/p lap cholecystectomy earlier today. Likely warp changer to cipro/flagyl tomorrow to complete a course of Abx. Continue clear liquid diet for now. She has discomfort now and will get some pain medication. Liver enzymes were up some yesterday as was the bilirubin-? mild cholangitis. Will get follow up levels tomorrow AM. (2) Renal cell carcinoma Current Visit: Yes Status: Acute Code(s): C64.9 - MALIGNANT NEOPLASM OF UNSP KIDNEY, EXCEPT RENAL PELVIS SNOMED Code(s): 730985438 Comment: Continue inlyta-will need to monitor for impaired wound healing ( known side effect). (3) Hypothyroidism Current Visit: Yes Status: Acute Code(s): E03.9 - HYPOTHYROIDISM, UNSPECIFIED SNOMED Code(s): 44220834 Comment: Continue synthroid. (4) DVT prophylaxis Current Visit: Yes Status: Acute Code(s): ZHM0164 - SNOMED Code(s): 944592068 Comment: SQ heparin (5) Full code status Current Visit: Yes Status: Acute Code(s): Z78.9 - OTHER SPECIFIED HEALTH STATUS SNOMED Code(s): 272697136
--- NOTE | 2016-09-23 03:53 | OP ---
DATE OF OPERATION: 09/22/16 - ROOM #335 DATE OF : 53 SURGEON: Romeo Cruz MD BIOMEDICAL ENGINEERING DIRECTOR: ALFA Navarro ANESTHESIOLOGIST: Dr. Yassine Ling. ANESTHESIA: General endotracheal. PRE-OP DIAGNOSIS: Acute cholecystitis. POST-OP DIAGNOSIS: Acute cholecystitis. OPERATIVE PROCEDURE: Laparoscopic cholecystectomy. ESTIMATED BLOOD LOSS: Less than 50 mL. IV FLUID: Crystalloids. SPECIMEN: Gallbladder. DRAINS: None. COMPLICATIONS: None. COUNTS: Instrument, needle and sponge counts were correct. DESCRIPTION OF PROCEDURE: The patient was brought to the operating room, placed on table supine. Sequential compression devices were placed on both lower extremities and general anesthesia was administered. The abdomen was prepped and draped in the usual sterile fashion. She did receive appropriate antibiotics preoperatively. A time-out was performed. After the prep and drape of the abdomen, local anesthetic was infiltrated into the skin and soft tissue and entry to the abdomen was through a transumbilical incision using an open technique. After accessing the peritoneal cavity, carbon dioxide was insufflated to a pressure of 15 mmHg through a 5 mm trocar. Under direct visualization, a 12 mm trocar was placed in the subxiphoid position and two 5 mm trocars were placed in the right upper quadrant. The gallbladder appeared to be distended and acutely inflamed. Findings were consistent with acute cholecystitis. Omentum was adherent to the gallbladder and this was dissected free using blunt dissection. Gallbladder was then decompressed by creating cholecystotomy with cautery and using endoscopic suction to drain the gallbladder completely. Subsequently, the gallbladder was grasped at the cholecystotomy site and retracted cephalad. The peritoneum surrounding the infundibulum was scored with the cautery and blunt dissection was used to dissect out the infundibulocystic duct junction and the dissection proceeded along the medial and lateral aspects in order to dissect this out. Also, the peritoneum was scored along the medial and lateral aspects of the gallbladder and the cystic artery was identified, bluntly dissected out. This was clipped and divided and then the cystic duct was clipped and divided and the gallbladder was retracted superiorly and dissected out using mostly blunt dissection due to the fact there was edema and necrosis of the posterior wall of the gallbladder making this plane readily available. The final attachments of the gallbladder to the liver were taken using scissors. Gallbladder was placed into a retrieval bag and retrieved through the subxiphoid port site. The surgical site was inspected, irrigated, and some small oozing spots on the liver bed were cauterized to achieve hemostasis. Clips were noted to be intact and after assuring hemostasis and after irrigating until clear, the ports were removed and carbon dioxide was released. The umbilical site and subxiphoid site were closed with 0 Polysorb in an interrupted fashion to approximate the fascia. Skin incisions were closed with 4-0 Monocryl in subcuticular fashion. Steri-Strips were applied. The patient was subsequently extubated and transferred to recovery room. CC: Nicol Stanford MD; Aramis Ingram MD, [place], [place]* [id number]/[facility] #: [id number]
[2016-09-23] MEDS: Levothyroxine TAB* 50 MCG TAB PO SCH (05:27)
[2016-09-23] MEDS: Piperac/Tazob 3.375 gm in NS* 3.375 GM/100 ML BAG IVPB SCH (05:27)
[2016-09-23] MEDS ORDERED: Heparin VIAL(*) 5000 UNITS/ML VIAL (FIVE THOUSAND) SUBCUT SCH (06:00)
[2016-09-23 07:14] LABS: Hematocrit 33 % (35-47); Hemoglobin 10.9 g/dl (12.0-16.0); Mean Corpuscular HGB Conc 33 g/dl (31-36); Mean Corpuscular Hemoglobin 28 pg (27-31); Mean Corpuscular Volume 84 fL (80-97); Mean Platelet Volume 9 um3 (7.4-10.4); Red Blood Count 3.93 10^6/ul (4.0-5.4); Red Cell Distribution Width 16 % (10.5-15); White Blood Count 5.4 10^3/ul (3.5-10.8)
[2016-09-23 07:37] LABS: ALT 32 U/L (7-52); AST 18 U/L (13-39); Albumin 2.7 g/dL (3.2-5.2); Alkaline Phosphatase 84 U/L (34-104); Anion Gap 6 mmol/L (2-11); BUN/Creatinine Ratio 17.3 (8-20); Blood Urea Nitrogen 14 mg/dL (6-24); C Reactive Protein 248.94 mg/L (< 5.00); CO2 Carbon Dioxide 24 mmol/L (22-32); Calcium 8.1 mg/dL (8.6-10.3); Chloride 105 mmol/L (101-111); EGFR African American 92.4 (>60); EGFR Non-African American 71.9 (>60); Globulin 3.1 g/dL (2-4); Glucose 156 mg/dL (70-100); Lipase < 10 U/L (11.0-82.0); Potassium 4.1 mmol/L (3.5-5.0); Sodium 135 mmol/L (133-145); Total Protein 5.8 g/dL (6.4-8.9)
[2016-09-23 07:48] VITALS: BP 153/79
[2016-09-23] MEDS: Pantoprazole IV* 40 MG IV SCH (08:58)
[2016-09-23] MEDS: AXITINIB 5 MG PO SCH (08:59)
--- NOTE | 2016-09-23 11:01 | SURGPN ---
Subjective - Introduction -: Reports doing much better this morning. Denies any pain, N/V, fever or chills. Tolerating clear liquids. - Medications -: Active Medications Generic Name Dose Route Start Last Admin Trade Name Freq PRN Reason Stop Dose Admin Acetaminophen 650 mg 09/21/16 01:26 09/23/16 08:58 Tylenol Tab* PO 650 mg Q6H PRN Administration FEVER/PAIN Heparin Sodium (Porcine) 5,000 units 09/23/16 06:00 09/23/16 05:28 Heparin Vial(*) SUBCUT 5,000 units Q8HR KATHERIN Administration Hydromorphone HCl 1 mg 09/21/16 01:26 09/22/16 18:13 Dilaudid Iv* IV 1 mg Q2H PRN Administration PAIN Piperacillin Sod/Tazobactam Sod 3.375 gm in 100 mls @ 25 mls/hr 09/21/16 05: 00 09/23/16 05:27 Zosyn 3.375 Gm In Ns Premix* IVPB 25 mls/hr Q8H KATHERIN Administration Lactated Ringer's 1,000 mls @ 125 mls/hr 09/22/16 16:00 09/23/16 03:09 Lactated Ringers 1000 Ml Bag* IV 125 mls/hr .per rate KATHERIN Administration Levothyroxine Sodium 50 mcg 09/22/16 06:00 09/23/16 05:27 Synthroid Tab* PO 50 mcg DAILY@0600 KATHERIN Administration Lorazepam 0.5 mg 09/21/16 01:26 09/22/16 20:55 Ativan Inj* IV 0.5 mg BEDTIME PRN Administration SLEEP Pt Own Nf Med* 5 mg 09/21/16 21:00 09/23/16 08:59 Inlyta 5 Mg PO 5 mg BID KATHERIN Administration Ondansetron HCl 4 mg 09/22/16 15:55 Zofran Inj* IV Q4H PRN NAUSEA/VOMITING Pantoprazole Sodium 40 mg 09/21/16 09:00 09/23/16 08:58 Protonix Iv* IV 40 mg DAILY KATHERIN Administration Pharmacy Profile Note 1 note 09/25/16 14:30 Scopolomine Patch Remove* PATCH OFF 09/25/16 14:31 Q72H ONE Objective - Objective -: Awake and alert, comfortable on bed, eating regular breakfast. In NAD. - Intake and Output -: Intake & Output 09/21/16 09/22/16 09/23/16 09/24/16 06:59 06:59 06:59 06:59 Intake Total 0 4835 3035 Output Total 700 1150 Balance 0 4135 1885 Weight 145 lb 6.4 oz 150 lb 157 lb 9.6 oz Intake: IV Fluids 3333 1967 LR 1800 NS (0.9%) 3173 167 zosyn 160 IVPB 152 968 LR 968 NS (0.9%) 152 Oral 0 1350 100 Output: Urine 700 1150 Surgical Physical Exam - Comments -: Vitals reviewed, afibrile. Lungs: CTA bilat. Abdomen: soft, non-tender and non-distended. Incisions clean, dry and intact. Ext.: No edema. Assessment and Plan - Assessment -: A 60 y/o female, s/p laparoscopic cholecystectomy, stable. - Plan Surgical Plan of Care: Discharge Additional Comments: Patient is doing very well after her surgery. She will be discharged to home today. Discussed d/c plans, will F/U with surgery next week. Also advised to F/ U with her PCP and Oncologist as planned.
--- NOTE | 2016-09-24 01:24 | DS ---
DISCHARGE SUMMARY: DATE OF ADMISSION: 09/20/16 DATE OF DISCHARGE: 09/22/16 PATIENT OF: Romeo Cruz MD ADMISSION DIAGNOSES: 1. Right upper quadrant abdominal pain. 2. Acute cholecystitis. 3. Hypothyroidemia. 4. Gastroesophageal reflux disease. 5. History of renal cell carcinoma, status post left nephrectomy in April 2014. DISCHARGE DIAGNOSES: 1. Right upper quadrant abdominal pain. 2. Acute cholecystitis. 3. Hypothyroidemia. 4. Gastroesophageal reflux disease. 5. History of renal cell carcinoma, status post left nephrectomy in April 2014. ADMITTING PHYSICIAN: Sebastian Carrington MD CONSULTATION: Romeo Cruz MD PROCEDURE: Laparoscopic cholecystectomy on 09/22/16. BRIEF MEDICAL HISTORY: Mrs. Edgar is a pleasant 60-year-old female who presented to the emergency room on the evening of 09/20/16, with complaints of worsening epigastric and upper right quadrant abdominal pain for the last three days. The patient notes that pain started dull and band like in her upper abdomen and has gotten progressively worse, for which she went to the emergency room for further evaluation. During her ER visit, she was noted to have elevated white blood cells as well as CT scan finding showing thickening of her gallbladder wall and other findings consistent with acute cholecystitis. The patient has history of a renal cell carcinoma for which he had a left nephrectomy back in April 2014. Given her ongoing symptoms and the findings of her CT scan, she was admitted to the hospital under medical services and we were consulted to see to patient for removal of her gallbladder. She did relatively well after a dose of Dilaudid in the emergency room and was seen next morning for consultation by Surgery. HOSPITAL COURSE: The patient was admitted and repeated laboratory workup showed persistent elevated white count for which we discussed with her proceeding with a laparoscopic cholecystectomy. The rationale, indications, risks, and benefits of surgery were discussed with her including but not limited to infection, bleeding, or injury to adjacent structures. The patient understood and wished to proceed with surgery as outlined. She was taken to the operating room in the afternoon hours of 09/22/16, where she underwent a laparoscopic cholecystectomy. It was noted during surgery to have moderate inflammation and thickening of her gallbladder wall, but the surgery went well with no significant blood loss. After recovery, the patient went back to her room and she continued to improve. She was started on clear-liquid diet that she tolerated well that night and eventually her diet was advanced to regular on the next morning. She continued to do well with no complaints of nausea, vomiting or abdominal pain. She was seen on the morning of postoperative day and she was ready to be discharged to home. I went on and discussed with her all the discharge instructions and the need to follow up with her primary care physician as well as her oncologist in [facility]. DISCHARGE MEDICATIONS: Include: 1. Ascorbic acid 500 mg p.o. q. daily. 2. Cholecalciferol 1000 unit tablets once daily. 3. Levothyroxine 50 mcg p.o. q. daily. 4. Prilosec 20 mg p.o. q. daily. 5. Inlyta as prescribed. 6. She also was given a script for Percocet 5/325 one to two tablets as needed every 6 hours for pain. PROBLEM LIST: Acute cholecystitis, status post laparoscopic cholecystectomy on 09/22/16. ALFA Adams CC: Nicol Stanford MD; Dr. Aramis Ingram, [facility] * [id number]/[facility] #: [id number] MTDD
[2016-09-25] MEDS ORDERED: Scopolamine PATCH Remove* 1 NOTE MISC PATCH OFF ONE (14:30)
== END 2016-09-23 12:40 | disposition home or self-care (01) | DRG 418 ==
LOC: ED 20:05 → SSU 09-21 01:43
PROVIDERS: ADMIT Hospitalist; ATTEND Surgery
PROC: 0FT44ZZ Resection of Gallbladder, Percutaneous Endoscopic Approach (ICD-10-PCS; principal; 2016-09-22 14:30)
DX: K80.00 Calculus of gallbladder with acute cholecystitis without obstruction (principal); C78.00 Secondary malignant neoplasm of unspecified lung; C64.9 Malignant neoplasm of unspecified kidney, except renal pelvis; E03.9 Hypothyroidism, unspecified; K21.9 Gastro-esophageal reflux disease without esophagitis; Z88.8 Allergy status to other drugs, medicaments and biological substances; Z90.5 Acquired absence of kidney; Z92.21 Personal history of antineoplastic chemotherapy; Z80.0 Family history of malignant neoplasm of digestive organs; Z82.49 Family history of ischemic heart disease and other diseases of the circulatory system; Z72.89 Other problems related to lifestyle; Z98.51 Tubal ligation status
CPT/HCPCS: 36415; 74177; 76705; 80048; 80053; 80076; 81003; 81015; 83605; 83690; 83735; 85025; 86140; 87040; 88304; 94760; 96374; 96375; 99285; A9270-GY; J1100; J1170; J1644; J2060; J2250; J2270; J2405; J2543; J2704; J2765; J3010; J3490; Q9967

== ENCOUNTER 2017-09-04 17:27 | Emergency (ER) | payer OTHER ==
[2017-09-04 22:51] LABS: Urine Appearance Cloudy; Urine Blood 3+ (Negative); Urine Color Yellow; Urine Ketones Negative (Negative); Urine Protein 2+(100 mg/dL) (Negative); Urine Specific Gravity 1.011 (1.010-1.030); Urine Urobilinogen Negative (Negative)
--- NOTE | 2017-09-04 23:19 | ED ---
GI/ HPI - HPI Summary HPI Summary: 61 female presents to ED with complaints of "a bubble" in her rectum area that began a few days ago and also some bleeding that she noticed today but does not know exactly where it is coming from. Patient has no history of hemorrhoids. Denies urinary symptoms. PMHx consists of kidney cancer and is currently taking chemotherapy pills, had one kidney removed. No other complaints at this time. States her pills cause her to have chronic diarrhea. No abdominal pain, fever/ chills, lightheadedness or feeling faint. - History of Current Complaint Chief Complaint: EDGeneral Time Seen by Provider: 09/04/17 21:31 Stated Complaint: HEMORRHAGE Hx Obtained From: Patient Onset/Duration: Started Hours Ago, Still Present Timing: Constant Severity: Mild Current Severity: Mild Vaginal Bleeding Description: Bright Red Number of Pads per Day: 5 - wears for chornic diarrhea however not for the new onset of bleeding Pain Intensity: 0 Location of Pain: Rectal Pain Characteristics: Aching - when touching or going to the bathroom Associated Signs and Symptoms: Positive: Bright Red Blood w/Stool Aggravating Factor(s): Straining - bowel movement, wiping Alleviating Factor(s): Nothing - Additional Pertinent History Primary Care Physician: SOPHIE - Allergy/Home Medications Allergies/Adverse Reactions: Allergies Allergy/AdvReac Type Severity Reaction Status Date / Time MS Sunitinib [From Sutent] Allergy Nausea Verified 09/20/16 20:11 PMH/Surg Hx/FS Hx/Imm Hx Endocrine/Hematology History: Reports: Hx Thyroid Disease - hypothyroid Respiratory History: Reports: Other Respiratory Problems/Disorders - KIDNEY CA, METASTASIZED TO LUNGS. GI History: Reports: Hx Gastroesophageal Reflux Disease - due to chemo pills History: Reports: Other Problems/Disorders - Kidney cancer Sensory History: Denies: Hx Contacts or Glasses, Hx Hearing Aid Opthamlomology History: Denies: Hx Contacts or Glasses - Cancer History Cancer Type, Location and Year: KIDNEY CA (LEFT), METS TO LUNGS - Surgical History Surgery Procedure, Year, and Place: Kidney removed 2013. Eye surgery. Tubal ligation Hx Anesthesia Reactions: No - Immunization History Immunizations Up to Date: Yes Infectious Disease History: No Infectious Disease History: Denies: Traveled Outside the [place] in Last 30 Days - Family History Known Family History: Positive: Cardiac Disease, Other - Pancreatic CA - Social History Alcohol Use: Occasionally Hx Substance Use: No Substance Use Type: Reports: None Hx Tobacco Use: No Smoking Status (MU): Never Smoked Tobacco Review of Systems Constitutional: Negative Cardiovascular: Negative Respiratory: Negative Gastrointestinal: Negative Positive: other - blood and pain with bowel movements at rectum All Other Systems Reviewed And Are Negative: Yes Physical Exam Triage Information Reviewed: Yes Vital Signs On Initial Exam: Initial Vitals Temp Pulse Resp BP Pulse Ox 98.2 F 94 16 128/97 99 09/04/17 17:33 09/04/17 17:33 09/04/17 17:33 09/04/17 17:33 09/04/17 17:33 Vital Signs Reviewed: Yes Appearance: Positive: Well-Appearing, No Pain Distress, Well-Nourished Skin: Positive: Warm, Skin Color Reflects Adequate Perfusion, Dry. Negative: Cold, Numb, Cyanosis @, Pale, Erythema @ Respiratory/Lung Sounds: Positive: Clear to Auscultation, Breath Sounds Present. Negative: Rales, Rhonchi, Wheezes Cardiovascular: Positive: Normal, RRR, Pulses are Symmetrical in both Upper and Lower Extremities. Negative: Murmur, Rub Abdomen Description: Positive: Nontender, No Organomegaly, Soft. Negative: CVA Tenderness (R), CVA Tenderness (L), Distended, Guarding Bowel Sounds: Positive: Present Pelvic Exam: Positive: active bleeding - external hemorrhoid, other - rectal exam preformed good tone, thrombosed eternal hemmorhoid present actively bleeding, clots cleared rest of exam normal Musculoskeletal: Positive: Normal, Strength/ROM Intact Neurological: Positive: Normal, Sensory/Motor Intact, Alert, Oriented to Person Place, Time Diagnostics - Vital Signs Vital Signs Temp Pulse Resp BP Pulse Ox 09/04/17 19:11 97.2 F 85 16 139/87 100 09/04/17 17:33 98.2 F 94 16 128/97 99 - Laboratory Lab Results: Lab Results 09/04/17 Range/Units 22:35 Urine Color Yellow Urine Appearance Cloudy Urine pH 5.0 (5-9) Ur Specific Sandy 1.011 (1.010-1.030) Urine Protein 2+(100 mg/dl) H (Negative) Urine Ketones Negative (Negative) Urine Blood 3+ H (Negative) Urine Nitrate Negative (Negative) Urine Bilirubin Negative (Negative) Urine Urobilinogen Negative (Negative) Ur Leukocyte Esterase 1+ H (Negative) Urine WBC (Auto) 3+(>20/hpf) H (Absent) Urine RBC (Auto) 3+(>10/hpf) H (Absent) Ur Squamous Epith Cells Present H (Absent) Urine Bacteria Absent (Absent) Urine Glucose Negative (Negative) Lab Statement: Any lab studies that have been ordered have been reviewed, and results considered in the medical decision making process. GIGU Course/Dx - Course Course Of Treatment: external thrombosed hemorrhoid actively bleeding with clots noted. clots were cleared away manually. rest of exam normal. urinalysis obtained however due to patient's symptoms of bleeding, diarrhea, wearing pads and bleeding from hemorrhoid and is asymptomatic appears to contaminated due to external hemorrhoid and stool on pad. No concern for UTI requiring treatment at this time however will wait for culture. No fever and normal vitals. No symptoms. Anusol-HC suppository and sitz baths at home. follow up with surgery. aware of worsening signs and symptoms no other concerns at this time. patient agrees and understands plan. - Diagnoses Differential Diagnoses - Female: Hemorrhoids, Rectal Fissure, Urinary Tract Infection Provider Diagnoses: Thrombosed external hemorrhoid Discharge - Discharge Plan Condition: Stable Disposition: HOME Prescriptions: Hydrocortisone SUPP* [Anusol HC Supp*] 25 mg .SEE ORDER BID #[id number] supp Patient Education Materials: Thrombosed Hemorrhoid (ED) Referrals: Nicol Stanford MD [Primary Care Provider] - Aiden Camara MD [Medical Doctor] - Additional Instructions: Insert medication as directed for 2 weeks. SITZ baths 3-4 times a day. Keep area clean and dry. Follow up with PCP. If symptoms worsen or do not improve please make appointment with surgeon. Any new or worsening symptoms please seek medical attention.
[2017-09-04 23:30] VITALS: BP 161/93
--- NOTE | 2017-09-07 12:19 | ED ---
Progress - Progress Note Progress Note: urine cx reveals no growth. No change in tx. Course/Dx - Course Course Of Treatment: external thrombosed hemorrhoid actively bleeding with clots noted. clots were cleared away manually. rest of exam normal. urinalysis obtained however due to patient's symptoms of bleeding, diarrhea, wearing pads and bleeding from hemorrhoid and is asymptomatic appears to contaminated due to external hemorrhoid and stool on pad. No concern for UTI requiring treatment at this time however will wait for culture. No fever and normal vitals. No symptoms. Anusol-HC suppository and sitz baths at home. follow up with surgery. aware of worsening signs and symptoms no other concerns at this time. patient agrees and understands plan. - Diagnoses Provider Diagnoses: Thrombosed external hemorrhoid
== END 2017-09-04 23:29 | disposition home or self-care (01) ==
LOC: ED 17:27
DX: K64.5 Perianal venous thrombosis (principal); R19.7 Diarrhea, unspecified; Z85.528 Personal history of other malignant neoplasm of kidney; Z87.19 Personal history of other diseases of the digestive system
CPT/HCPCS: 81003; 81015; 87086; 99282